=== PATIENT | female | born 1980 | race Caucasian/White ===

== ENCOUNTER 2021-06-09 06:26 | Day surgery (SDC) | payer OTHER ==
[2021-06-08 10:23] VITALS: BMI 33.9
--- NOTE | 2021-06-08 17:07 | P.HPOB ---
History of Present Illness H&P Date: 06/08/21 Chief Complaint: menorrhagia 40 year old presents for D&C hysteroscopy with Myosure and endometrial ablation with NovaSure due to menorrhagia. Review of Systems All systems: negative Constitutional: Denies chills, Denies fever Eyes: denies blurred vision, denies pain Ears, nose, mouth and throat: Denies headache, Denies sore throat Cardiovascular: Denies chest pain, Denies shortness of breath Respiratory: Denies cough Gastrointestinal: Denies abdominal pain, Denies diarrhea, Denies nausea, Denies vomiting Genitourinary: Denies dysuria, Denies hematuria Musculoskeletal: Denies myalgias Integumentary: Denies pruritus, Denies rash Neurological: Denies numbness, Denies weakness Psychiatric: Denies anxiety, Denies depression Endocrine: Denies fatigue, Denies weight change Past Medical History History of Any Multi-Drug Resistant Organisms: None Reported Past Surgical History: Section, Tonsillectomy Additional Past Surgical History / Comment(s): wisdom teeth removed, C/S x2 Past Anesthesia/Blood Transfusion Reactions: No Reported Reaction Smoking Status: Former smoker Medications and Allergies Home Medications Medication Instructions Recorded Confirmed Type ALPRAZolam [Xanax] 0.25 mg PO BID PRN 06/08/21 06/08/21 History Melatonin 5 mg PO HS 06/08/21 06/08/21 History buPROPion XL [Wellbutrin XL] 450 mg PO DAILY 06/08/21 06/08/21 History Allergies Allergy/AdvReac Type Severity Reaction Status Date / Time No Known Allergies Allergy Verified 06/08/21 10:08 Exam Osteopathic Statement: *. No significant issues noted on an osteopathic structural exam other than those noted in the History and Physical/Consult. Intake and Output 06/08/21 06/08/21 06/08/21 06:59 14:59 22:59 Other: Weight 95.254 kg Heart: Regular rate and rhythm Lungs: Clear to auscultation bilaterally Abdomen: Soft, nontender Extremities: Negative Homans sign Assessment and Plan (1) Menorrhagia Status: Acute Code(s): N92.0 - EXCESSIVE AND FREQUENT MENSTRUATION WITH REGULAR CYCLE SNOMED Code(s): 521327940 Plan: 1. D&C hysteroscopy with myosure and endometrial ablation with novasure.
[~2021-06-09 06:26] MED LIST: DEXAMETHASONE SOD PHOSPHATE 4 MG/ML 1 ML VIAL IV ONE; HYDROmorphone 0.5 MG/0.5 ML SYRINGE IVP PRN; LACTATED RINGERS 1,000 ML IV SCH; LIDOCAINE 1% (10MG/ML) FOR IV START INTRADERMA PRN; ONDANSETRON 4 MG/2 ML VIAL IVP ONE; Pre Op ABX Message 1 EACH MISC MISCELLANE ONE; SCOPOLAMINE 1 MG/72 HR PATCH TRANSDERM ONE
[2021-06-09] MEDS ORDERED: PROPOFOL 10 MG/ML 20 ML VIAL IV ONE (07:24)
[2021-06-09] MEDS ORDERED: fentaNYL (PF) 50 MCG/ML 2 ML AMP ONE (07:24)
[2021-06-09] MEDS ORDERED: LIDOCAINE 1% INJ 10MG/ML (20 ML MDV) ONE (07:24)
[2021-06-09] MEDS ORDERED: KETOROLAC 15 MG/ML 1 ML VIAL ONE (07:24)
[2021-06-09] MEDS ORDERED: HYDROmorphone (PF) 1 MG/ML ONE (07:24)
[2021-06-09] MEDS ORDERED: MIDAZOLAM 2 MG/2 ML VIAL ONE (07:24)
[2021-06-09] MEDS ORDERED: SUCCINYLCHOLINE CHLORIDE 100 MG/5 ML SYR IV ONE (07:24)
[2021-06-09 08:21] VITALS: TEMP 97
--- NOTE | 2021-06-09 08:23 | P.OP ---
Date of Procedure: 06/09/21 Preoperative Diagnosis: 1. menorrhagia Postoperative Diagnosis: 1.menorrhagia Procedure(s) Performed: D&C and hysteroscopy with MyoSure and endometrial ablation with NovaSure Anesthesia: MAC Surgeon: Jana Crenshaw Estimated Blood Loss (ml): 2 IV fluids (ml): 600 Urine output (ml): 10 Pathology: other (endometrial currettings) Condition: stable Disposition: PACU Operative Findings: Uterus sounded to 10 cm. Cavity length was 6 cm, width 3.5 cm, power 116 W and time of ablation 1 minute 7 seconds. Adequate ablation after NovaSure Description of Procedure: Patient is taken the operating room where general anesthesia was obtained without difficulty. She was prepped and draped in normal sterile fashion dorsal lithotomy position, legs placed in the candy cane stirrups. Bladder was drained of all urine. Weighted speculum placed in the vagina and the anterior lip the cervix was grasped with serial tooth tenaculum. The uterus sounded to 10 cm and the cervix under 4 cm making the cavity length 6 cm. The cervix was dilated to #8 Hegar dilator. Hysteroscopy was then performed using Myosure. Both ostia were visualized and there was a smooth contour of the uterus with proliferative endometrium seen. The MyoSure handpiece was used to obtain tissue from all 4 quadrants. The NovaSure was introduced into the uterus with a cavity length of 6 cm, width 3.5 cm. after cavity assessment was passed, the time of ablation was 67 seconds at 116 W. Hysteroscopy was again performed and adequate ablation was noted. All instruments removed from the vagina. Patient tolerated the procedure well, sponge and instrument counts were correct 2 and she was taken to recovery in stable condition.
[2021-06-09 08:29] VITALS: RESP 16
[2021-06-09 09:06] VITALS: BP 140/82; PULSE 70
== END 2021-06-09 09:43 | disposition home or self-care (01) ==
LOC: OR 06:26
PROVIDERS: ATTEND Obstetrics & Gynecology
DX: N92.0 Excessive and frequent menstruation with regular cycle (principal); F41.9 Anxiety disorder, unspecified; Z87.891 Personal history of nicotine dependence; Z79.899 Other long term (current) drug therapy
CPT/HCPCS: 58558; 81025; 88305; J2250; J2001; J3010; J1170; J1885; J0330; J2704

== ENCOUNTER → 2022-09-29 | Outpatient (CLI) | payer OTHER ==
--- NOTE | 2022-10-02 14:33 | MM ---
Reason for Exam: Screening (asymptomatic). Last mammogram was performed 5 year(s) and 6 month(s) ago. Patient History: Menarche at age 16. First Full-Term at age 31. Premenopausal. Hormonal Contraceptives for 8 years from age 20 until age 28. Maternal grandmother had breast cancer under age 50. Risk Values: Benita 5 year model risk: 0.6%. NCI Lifetime model risk: 10.2%. Prior Study Comparison: 04/18/2017 Bilateral Screening Mammogram, Unknown. Tissue Density: The breast tissue is extremely dense which could obscure a lesion on mammography. Findings: Analyzed By CAD. Pattern appears symmetrical. Benign calcifications in the left breast. No suspicious groups of microcalcifications, spiculated or lobular masses, architectural distortion or other secondary signs of malignancy are mammographically apparent. Overall Assessment: Benign, BI-RAD 2 Management: Screening Mammogram of both breasts in 1 year. A negative mammogram report should not preclude additional follow up of suspicious palpable abnormalities. Patient should continue monthly self breast exam. A clinical breast exam by your physician is recommended on an annual basis and results should be correlated with mammographic findings. Electronically signed and approved by: Manuel Banuelos D.O. Radiologis
== END | disposition home or self-care (01) ==
LOC: RADMAMWWP 12:51
PROVIDERS: ATTEND Obstetrics & Gynecology
DX: Z12.31 Encounter for screening mammogram for malignant neoplasm of breast (principal); Z80.3 Family history of malignant neoplasm of breast
CPT/HCPCS: 77067

== ENCOUNTER → 2024-04-21 | Outpatient (CLI) | payer OTHER ==
--- NOTE | 2024-04-21 15:29 | MM ---
Reason for Exam: Screening (asymptomatic). Last mammogram was performed 1 year(s) and 6 month(s) ago. Patient History: Menarche at age 16. First Full-Term at age 31. Premenopausal. Hormonal Contraceptives for 8 years from age 20 until age 28. Maternal grandmother had breast cancer under age 50. Risk Values: Benita 5 year model risk: 0.6%. NCI Lifetime model risk: 10.1%. Prior Study Comparison: 04/18/2017 Bilateral Screening Mammogram, Unknown. 09/29/2022 Bilateral MG screening mammo w CAD, [facility]. Tissue Density: The breasts are heterogeneously dense, which may obscure small masses. Findings: Analyzed By CAD. Right breast: There is no suspicious group of microcalcifications or new suspicious mass. Left breast: There is no suspicious group of microcalcifications or new suspicious mass. Overall Assessment: Negative, BI-RAD 1 Management: Screening Mammogram of both breasts in [address] [facility] will attempt to contact patient to return for supplemental views and ultrasound if indicated. Patient should continue monthly self-breast exams. A clinical breast exam by your physician is recommended on an annual basis. This exam should not preclude additional follow-up of suspicious palpable abnormalities. Note on Benita scores and lifetime risk: 1. A Benita score greater than 3% is considered moderate risk. If this is the case, consider specialist referral to assess eligibility for a risk reducing agent. 2. If overall lifetime risk for the development of breast cancer is 20% or higher, the patient may qualify for future screening with alternating mammogram and breast MRI. [facility], , 04/21/2024 3:23 PM. Electronically signed and approved by: Pedro Shepherd DO
== END | disposition home or self-care (01) ==
LOC: RADMAMWWP 14:34
PROVIDERS: ATTEND Obstetrics & Gynecology
DX: Z12.31 Encounter for screening mammogram for malignant neoplasm of breast (principal); R92.333 Mammographic heterogeneous density, bilateral breasts; Z80.3 Family history of malignant neoplasm of breast; Z92.0 Personal history of contraception
CPT/HCPCS: 77067